=== PATIENT | male | born 1965 | race Caucasian/White ===

== ENCOUNTER 2018-05-06 03:12 | Emergency (ER) | payer OTHER ==
[~2018-05-06] VITALS: Ht 180.3 cm; Wt 150.6 kg
[2018-05-06] MEDS ORDERED: NORFLEX100MG PO (04:45)
[2018-05-06] MEDS ORDERED: KETO10TA2 PO (04:45)
== END 2018-05-06 13:58 | disposition home or self-care (01) ==
LOC: ER 03:12
DX: M54.5 Low back pain (principal)

== ENCOUNTER 2022-05-22 07:52 | Day surgery (SDC) | payer OTHER ==
[~2022-05-22] VITALS: Ht 180.3 cm; Wt 130.2 kg
[~2022-05-22 07:52] MED LIST: ASA81 MG PO; ATORVASTATIN CA10 MG PO; FENO PO; KETO10TA2 PO; NORFLEX100MG PO; SYNJARDY 5-5001 EACH PO; ZESTRIL10 M1 PO
== END 2022-05-22 18:00 | disposition home or self-care (01) ==
LOC: CIR.AMB 07:52
PROVIDERS: ATTEND Surgery
DX: K80.10 Calculus of gallbladder with chronic cholecystitis without obstruction (principal); I10 Essential (primary) hypertension; E11.9 Type 2 diabetes mellitus without complications; Z79.84 Long term (current) use of oral hypoglycemic drugs; Z87.891 Personal history of nicotine dependence; Z20.822 Contact with and (suspected) exposure to COVID-19

== ENCOUNTER 2024-07-24 09:45 | Emergency (ER) | payer OTHER ==
[~2024-07-24] VITALS: Ht 180.3 cm; Wt 128.4 kg
[2024-07-24] MEDS ORDERED: MOUNJARO7.5 MG/0.5 SQ (11:24)
[2024-07-24] MEDS ORDERED: FENOFIBRATE50 MG (11:25)
[2024-07-24] MEDS ORDERED: NIFEDIPINE 10 MG CAPSULE PO ONE (12:30)
[2024-07-24 12:59] LABS: BASO % 0.8 % (0.1-1.2); EOS # 0.06 (0.04-0.54); HEMATOCRIT 48.1 % (40.1-51.0); HEMOGLOBIN 16.3 g/dL (13.7-17.5); LYMPH # 1.44 (1.18-3.74); LYMPH % 22.9 % (19.3-53.1); MEAN CORPUSCULAR HEMOGLOBIN 28.3 pg (25.6-32.2); MONO # 0.58 (0.24-0.82); MONO % 9.2 % (4.7-12.5); NEUT # 4.13 (1.56-6.13); NEUT % 65.8 % (34.0-71.1); PLATELET COUNT 301 K/uL (163-369); RED BLOOD COUNT 5.76 M/uL (4.63-6.08); RED CELL DISTRIBUTION WIDTH 14.7 % (11.6-14.4)
[2024-07-24 13:22] LABS: URINE APPEARANCE Clear; URINE BILIRRUBIN Negative (NEGATIVE); URINE BLOOD Negative; URINE COLOR Yellow; URINE GLUCOSE Negative (NEGATIVE); URINE KETONE Negative (NEGATIVE); URINE LEUKOCYTE Negative; URINE NITRATE Negative; URINE PROTEIN Trace (NEGATIVE)
[2024-07-24 13:26] LABS: URINE BACTERIA 46.5 uL (0.0-1933); URINE EPITHELIAL CELLS 5.5 uL (0.0-38.8); URINE WBC 4.8 uL (0.0-23.2)
[2024-07-24 13:39] LABS: BILIRUBIN TOTAL 0.43 mg/dL (0.3-1.2); CALCIUM 9.6 mg/dL (8.5-10.1); CREATININE SERUM 0.9 mg/dL (0.70-1.30); GFR 86.98; GLOBULINA 3.7 G/DL (2.4-3.5); POTASSIUM 4.11 mEq/L (3.5-5.1); TOTAL PROTEIN 7.7 gm/dL (6.4-8.2)
[2024-07-24] MEDS ORDERED: ACETAMINOPHEN 500 MG GEL..CAP PO ONE (17:18)
[2024-07-24] MEDS ORDERED: LABETALOL HCL 200 MG TABLET PO ONE (22:15)
== END 2024-07-25 00:49 | disposition home or self-care (01) ==
LOC: ER 09:45
PROVIDERS: General Practice
DX: I10 Essential (primary) hypertension (principal); E78.00 Pure hypercholesterolemia, unspecified; E11.9 Type 2 diabetes mellitus without complications; Z79.84 Long term (current) use of oral hypoglycemic drugs